=== PATIENT | male | born 2000 | race Caucasian/White ===

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

== ENCOUNTER 2020-07-27 00:32 | Emergency (ER) | payer BC ==
[~2020-07-27] VITALS: Ht 172.7 cm; Wt 79.4 kg
[~2020-07-27 00:32] MED LIST changes: -CLIN300C11 PO; +CLIN300C12 PO
[2020-07-27] MEDS ORDERED: HYDR25SU13 RC (00:53)
--- NOTE | 2020-07-27 00:58 | NUR ---
Patient discharged to home in stable condition. Written and verbal after care instructions given. Patient verbalizes understanding of instructions. Stressed follow up or return to ER for worsening s/s.
== END 2020-07-27 00:59 | disposition home or self-care (01) ==
LOC: ER 00:34
DX: K64.4 Residual hemorrhoidal skin tags (principal)
CPT/HCPCS: A4663

== ENCOUNTER 2021-07-14 22:53 | Emergency (ER) | payer SELFPAY ==
[~2021-07-14 22:53] MED LIST changes: +HYDR25SU13 RC
--- NOTE | 2021-07-15 | NUR ---
Patient was called to be triaged but waqs not present in the waiting room or outside of ER.
--- NOTE | 2021-07-15 00:10 | NUR ---
Patient was called to be triaged but was not present in the waiting room or outside of ER.
--- NOTE | 2021-07-15 00:15 | NUR ---
Patient was not triaged or seen by ERMD.
== END 2021-07-15 00:15 | disposition left against medical advice (07) ==
LOC: ER 23:01
DX: Z53.21 Procedure and treatment not carried out due to patient leaving prior to being seen by health care provider (principal)